=== PATIENT | male | born 1995 | race Caucasian/White ===

== ENCOUNTER 2019-11-01 11:55 | Emergency (ER) | payer SELFPAY ==
--- NOTE | 2019-11-01 12:49 | ER Document Report ---
ED Medical Screen (RME) - General Chief Complaint: Groin Pain Stated Complaint: GROIN PAIN Time Seen by Provider: 11/01/19 12:47 Mode of Arrival: Ambulatory Information source: Patient Notes: 23-year-old male presented to ED for bilateral testicle pain. He states is been going on for about 3 days. He states when he tried to walk onto the job today the pain was so bad that he could not walk and work today. He states is not like a sharp pain but a very achy throbbing pain states he does not notice any swelling but they are red. Denies any urine frequency urgency or pain with urination denies any anal discharge. Will get clean and dirty urine and an ultrasound. I have greeted and performed a rapid initial assessment of this patient. A comprehensive ED assessment and evaluation of the patient, analysis of test results and completion of medical decision making process will be conducted by an additional ED providers. - Related Data Allergies/Adverse Reactions: No Known Allergies Allergy (Verified 11/01/19 12:46)
[2019-11-01 13:56] LABS: APPEARANCE,URINE SLIGHTLY-CLOUDY; BILIRUBIN,URINE NEGATIVE (NEGATIVE); COLOR,URINE YELLOW; GLUCOSE, URINE NEGATIVE (NEGATIVE); KETONES,URINE TRACE mg/dL (NEGATIVE); PROTEIN,URINE 30 mg/dL (NEGATIVE); URINE SPECIFIC GRAVITY 1.028
--- NOTE | 2019-11-01 15:06 | ER Document Report ---
ED GI/ - General Chief Complaint: Testicular Pain Stated Complaint: GROIN PAIN Time Seen by Provider: 11/01/19 14:47 Primary Care Provider: [facility] [Provider Group] - Follow up as needed [facility] [Provider Group] - Follow up as needed Mode of Arrival: Ambulatory Information source: Patient Notes: Patient presents complaining of bilateral testicular pain for the past 3 days. Patient denies any injury to the scrotum. Patient denies any urinary symptoms. Patient denies any fever, nausea or vomiting. Patient denies any abdominal tenderness. - HPI Patient complains to provider of: Testicular pain Onset: Other - 3 d Timing/Duration: Persistent Quality of pain: Throbbing Pain Level: 2 Context: denies: Lifting, Recent trauma Location: Left testicle, Right testicle Sexual history: Active Associated symptoms: denies: Diarrhea, Loss of appetite, Nausea, Urinary hesitancy, Urinary frequency, Urinary retention, Urinary urgency, Vomiting Exacerbated by: Denies Relieved by: Denies Similar symptoms previously: No Recently seen / treated by doctor: No - Related Data Allergies/Adverse Reactions: No Known Allergies Allergy (Verified 11/01/19 12:46) Past Medical History - General Information source: Patient - Social History Smoking Status: Current Every Day Smoker Frequency of alcohol use: None Drug Abuse: None Occupation: boat ramp Lives with: Family Family History: Reviewed & Not Pertinent Patient has suicidal ideation: No Patient has homicidal ideation: No - Medical History Medical History: Negative Surgical Hx: Negative Review of Systems - Review of Systems Constitutional: No symptoms reported. denies: Fever, Recent illness EENT: No symptoms reported Cardiovascular: No symptoms reported Respiratory: No symptoms reported. denies: Cough Gastrointestinal: No symptoms reported. denies: Abdominal pain, Nausea, Vomiting Genitourinary: No symptoms reported. denies: Burning, Dysuria, Flank pain, Hematuria Male Genitourinary: Testicular pain. denies: Penile discharge Musculoskeletal: No symptoms reported. denies: Back pain Skin: No symptoms reported Hematologic/Lymphatic: No symptoms reported Neurological/Psychological: No symptoms reported Physical Exam - General General appearance: Appears well, Alert In distress: None - HEENT Head: Normocephalic, Atraumatic Eyes: Normal Conjunctiva: Normal Nasal: Normal Mouth/Lips: Normal Neck: Normal, Supple - Respiratory Respiratory status: No respiratory distress Chest status: Nontender Breath sounds: Normal. No: Rales, Rhonchi, Stridor, Wheezing Chest palpation: Normal - Cardiovascular Rhythm: Regular Heart sounds: S1 appreciated, S2 appreciated Murmur: No - Abdominal Inspection: Normal Distension: No distension Bowel sounds: Normal Tenderness: Tender - Suprapubic. No: Guarding Organomegaly: No organomegaly - Genitourinary Inspection: Other - Patient with 3 soft papular lesions to shaft of penis Tenderness: Testicle tender - Bilateral testicular tenderness Cremasteric reflex: Normal Scrotum: Normal. No: Swelling, Redness, Hot to touch - Back Back: Normal, Nontender. No: CVA tenderness - Extremities General upper extremity: Normal inspection, Nontender, Normal strength General lower extremity: Normal inspection, Nontender, Normal strength - Neurological Neuro grossly intact: Yes Cognition: Normal Orientation: AAOx4 [place] Coma Scale Eye Opening: Spontaneous [place] Coma Scale Verbal: Oriented [place] Coma Scale Motor: Obeys Commands [place] Coma Scale Total: 15 - Psychological Associated symptoms: Normal affect, Normal mood - Skin Skin Temperature: Warm Skin Moisture: Dry Skin Color: Normal Course - Re-evaluation Re-evalutation: 11/01/19 17:37 Patient's ultrasound report is not resulted at this time. Patient states that his child is acting up at home and he needs to leave at this time to take care of his child. Patient advised that he may have a potential surgical emergency or infection that may require additional treatment. Patient declines waiting for the test results and prefers to leave at this time. The patient has decided not to proceed with further recommended testing or treatment to determine the cause of her symptoms. The risk and alternatives to the recommendation were discussed the patient voiced understanding. The patient appears clinically to have the capacity to make this decision. The patient was instructed that they could return to the ER at any time to complete the testing or treatment. - Laboratory Laboratory results interpreted by me: 11/01/19 13:30 Urine Protein 30 H Urine Ketones TRACE H Urine Urobilinogen 4.0 H 11/01/19 17:51 Labs- Entire Visit 11/01/19 11/01/19 13:30 13:30 Urine Color YELLOW Urine Appearance SLIGHTLY-CLOUDY Urine pH 7.0 Ur Specific [place] 1.028 Urine Protein 30 H Urine Glucose (UA) NEGATIVE Urine Ketones TRACE H Urine Blood NEGATIVE Urine Nitrite (Reflex) NEGATIVE Urine Bilirubin NEGATIVE Urine Urobilinogen 4.0 H Leukocyte Esterase Rfl NEGATIVE Urine RBC (Auto) 1 Urine Bacteria (Auto) 1+ Urine WBC (Reflex) 3 Squamous Epi Cells Auto <1 Urine Mucus (Auto) MANY Urine Ascorbic Acid NEGATIVE Chlamydia DNA (PCR) NOT DETECTED N.gonorrhoeae DNA (PCR) NOT DETECTED Discharge - Discharge Clinical Impression: Testicular pain Disposition: AGAINST MEDICAL ADVICE Additional Instructions: Return immediately if you have any worsening of symptoms or if you would like to continue evaluation of your symptoms. Referrals: [facility] [Provider Group] - Follow up as needed [facility] [Provider Group] - Follow up as needed
[2019-11-01 15:17] LABS: CHLAM PCR NOT DETECTED (NOT DETECT)
--- NOTE | 2019-11-01 17:50 | RADIOLOGY REPORT (SQ) ---
EXAM DESCRIPTION: U/S SCROTUM W/DOPPLER COMPLETED DATE/TIME: 11/01/2019 4:58 pm REASON FOR STUDY: Bilateral testicle pain COMPARISON: None. TECHNIQUE: Static and realtime monroe scale imaging of the scrotum and testes. Selected color Doppler and spectral images recorded to document blood flow. LIMITATIONS: None. FINDINGS: RIGHT: TESTICLE: Normal size. Normal echotexture. Normal blood flow. No mass. EPIDIDYMIS: There is a tiny epididymal head cyst measuring 2 mm. Otherwise the epididymis is normal. HYDROCELE OR VARICOCELE: There is a small simple appearing hydrocele present HERNIA OR EXTRA-TESTICULAR MASS: No. OTHER: No other significant finding. LEFT: TESTICLE: Normal size. Normal echotexture. Normal blood flow. No mass. EPIDIDYMIS: Normal. HYDROCELE OR VARICOCELE: No. HERNIA OR EXTRA-TESTICULAR MASS: No. OTHER: No other significant finding. IMPRESSION: Small right-sided hydrocele and tiny right-sided epididymal head cyst. No evidence of m ass lesion or torsion. TECHNICAL DOCUMENTATION: JOB ID: [id number] [email or web address] Rights [email or web address] Reading location - IP/workstation name: [email or web address]
[2019-11-01 17:53] VITALS: BP 126/78
== END 2019-11-01 17:42 | disposition left against medical advice (07) ==
LOC: ER 11:55
DX: N50.811 Right testicular pain (principal); N50.812 Left testicular pain; N48.9 Disorder of penis, unspecified; R10.819 Abdominal tenderness, unspecified site; F17.200 Nicotine dependence, unspecified, uncomplicated; Z53.29 Procedure and treatment not carried out because of patient's decision for other reasons
CPT/HCPCS: 76870; 81001; 87491; 87591; 93976; 99284